=== PATIENT | female | born 2000 | race Caucasian/White ===

== ENCOUNTER 2020-09-25 14:29 | Inpatient (IN) ==
[2020-09-25] MEDS ORDERED: OXYTOCIN 30 UNITS/500 ML BAG IV PRN ×2 (15:04→20:10)
--- NOTE | 2020-09-25 15:10 | History & Physical Report ---
Date of Service September 25, 2020 Assessment & Plan (1) Postmaturity , 40-42 weeks gestation: (2) pyelectasis: (3) History of drug abuse: (4) Normal labor: grossly ruptured and laboring. Admit. expectant management. gbs negative. urine drug screen. hx of heroin and meth use. Fetus reassuring. anticipate . History of Present Illness Chief Complaint: leaking fluid and contractions Primary Care Provider: NO PCP Ptient is a 20yowf with iup at 40 4/7 weeks who presents to labor and delivery with complaints of contractions and a large gush of fluid at 1pm. clear. Notes contractions much more uncomfortable than previous contractions. complicated by the following 1. late presentation to care--presented at 20 weeks, was incarcerated at the time. 2. 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 Is currently on probation , and getting drug tested regularly and has been negative. 3. Hep C prelim positive and RNA is negative. 4. bilateral pyelectasis on US--stable, to be followed after delivery labs--A-/ab-/ri/rprnr/hepb-/hiv-/Hep C prlim positive/ Hep C RNA neg/AFP-/cf/sma-/panorama low risk/failed 1 hr gtt/ passed 2 hr gtt/ gbs neg/ covid neg x 2. Allergies Allergy/AdvReac Type Severity Reaction Status Date / Time Penicillins Allergy unknown, Verified 09/21/20 10:56 ocurred as Home Medications Home Medications Medication Instructions Recorded Confirmed Type prenat.vits,sherry,[id number] 1 tab PO DAILY 05/11/20 09/22/20 History acetaminophen [Tylenol Extra 500 mg PO Q6H PRN 06/02/20 09/22/20 History Strength] ondansetron HCl [Zofran] 4 mg PO BID 06/02/20 09/22/20 History Patient History Medical History (Updated 09/25/20 @ 15:19 by Yandy Valderrama MD, FACOG) 24 weeks gestation of Abdominal pain affecting Abnormal biochemical finding on screening of mother Anxiety Cervicitis Depression Hepatitis C History of drug abuse used methamphetamine on 05/05/2020 used herion in past as well Surgical History S/P wisdom tooth extraction Family History Mother Diabetes Brother Diabetes Grandfather (Paternal) Hypertension Grandmother (Paternal) Hypertension Social History Smoking Status: Current every day smoker Cigarettes Per Day: 1/2 pack; Second Hand Exposure: No; Hx Alcohol Use: No Hx Substance Use: Yes Last Used Substance Other:: April 2020 Preferred Language: Bahraini Communication Ability: Effective Graphite Grinder Required: No Beliefs That Will Affect Care: None marital status: Single marital status details: fob not involved Current Living Situation: Family and Significant Other Current Living Situation Comment: currently [facility] current occupational status: unemployed Feels Safe at Home: Yes Assistive Devices: None Review of Systems All systems reviewed & are unremarkable except as noted in HPI & below Physical Exam Constitutional: WD/WN, vitals as above Gastrointestinal (Abdomen): soft, gravid, nt Psychiatric: A+Ox3, euthymic affect Genitourinary: cx--/-2 toco--q2-3min efm--150s with mod variability, small accels , no decels sse--grossly ruptured, hair visible Code Status & VTE Plan VTE Prophylaxis Plan VTE Prophylaxis will be ordered: No Coding Level of Care Code None Diagnoses Postmaturity , 40-42 weeks gestation O48.0 pyelectasis History of drug abuse F19.11 Normal labor O80; Z37.9
[2020-09-25] MEDS ORDERED: BUTORPHANOL TARTRATE 1 MG/ML VIAL IV ONE (15:15)
[2020-09-25] MEDS: LACTATED RINGER'S 1,000 ML IV PRN ×2 (15:22→19:13)
[2020-09-25 15:28] LABS: Hematocrit (blood only) 39.7 % (37-47); Hemoglobin 13.4 g/dL (12.0-16.0); Mean Corpuscular Hemoglobin 31.9 pg (25-34); Mean Corpuscular Hgb Conc 33.8 g/dL (32-36); Mean Corpuscular Volume 94.5 fL (80-100); Mean Platelet Volume 11.7 fL (7.4-10.4); Platelet Count 187 K/uL (130-400); RDW Coefficient of Variation 13.3 % (11.5-14.5); RDW Standard Deviation 45.8 fL (36.4-46.3); White Blood Count 17.27 K/uL (4.8-10.8)
[2020-09-25 16:13] LABS: Amphetamines+Metham, Urine Neg (Neg); Barbiturates, Urine Neg (Neg); Benzodiazepine, Urine Neg (Neg); Cocaine, Urine Neg (Neg); MDMA (Ecstacy), Urine Neg (Neg); Methadone, Urine Neg (Neg); Opiate, Urine Neg (Neg); Phencyclidine, Urine Neg (Neg)
[2020-09-25] MEDS ORDERED: ePHEDrine sulfate 50 MG/ML AMP ONE (16:14)
[2020-09-25] MEDS ORDERED: SODIUM CHLORIDE 0.9% INJ 10 ML VIAL ONE (16:14)
[2020-09-25] MEDS ORDERED: BUPIVACAINE 0.25% 30 ML VIAL ONE (16:14)
[2020-09-25] MEDS ORDERED: fentaNYL citrate 100 MCG/2 ML VIAL ONE (16:14)
[2020-09-25] MEDS ORDERED: fentaNYL 2MCG/ML ROPIVACAINE 1.25MG/ML 100 ML BAG EPI ONE (16:15)
--- NOTE | 2020-09-25 16:17 | Anesthesiology Consultation ---
Date of Service September 25, 2020 Assessment & Plan Chart Review Chart Review: Acceptable Risk for Surgery and Acceptable Risk for Labor Epidural Consults Requested none ASA ASA2 Proposed Anesthesia Anesthesia Type: Labor Epidural Risk / Benefits Reviewed With: PT / POA / Parent / Guardian, Accepts Plan and Informed Consent Obtained History Height/Weight Height: 5 ft 6 in Allergies Allergy/AdvReac Type Severity Reaction Status Date / Time Penicillins Allergy unknown, Verified 09/21/20 10:56 ocurred as infant Medications Home Medications Medication Instructions Recorded Confirmed Last Taken prenat.vits,sherry,[id number] 1 tab PO DAILY 05/11/20 09/22/20 09/21/20 acetaminophen [Tylenol Extra 500 mg PO Q6H PRN 06/02/20 09/22/20 09/19/20 Strength] ondansetron HCl [Zofran] 4 mg PO BID 06/02/20 09/22/20 06/01/20 20:00 Active Medications Generic Name Dose Route Start Last Admin Trade Name Freq PRN Reason Stop Dose Admin Lactated Ringer's 1,000 mls @ 125 mls/hr 09/25/20 15:04 09/25/20 16:10 Lr IV 09/27/20 15:03 999 mls/hr .Q8H PRN Infusion L&D Protocol Protocol NPO Date Last Intake of Fluids: 09/25/20 Time Last Intake of Fluids: 16:00 Date Last Intake of Solids: 09/25/20 Past Medical History Medical History 24 weeks gestation of Abdominal pain affecting Abnormal biochemical finding on screening of mother Anxiety Cervicitis Depression Hepatitis C History of drug abuse used methamphetamine on 05/05/2020 used herion in past as well Exercise / Class Metabolic Activity II 4-5 Yardwork/Stairs/Walk up hill Past Family History Family History Mother Diabetes Brother Diabetes Grandfather (Paternal) Hypertension Grandmother (Paternal) Hypertension Past Surgical History Surgical History S/P wisdom tooth extraction Past Anesthesia History No Hx of Anesthesia Complications and No Family Hx of Anesthesia Complications History of PONV No Hx of PONV and No Hx of Motion Sickness Social History Smoking Status: Current every day smoker tobacco type: cigarettes Smoking cigarettes per day: 1/2 pack Hx Alcohol Use: No Hx Substance Use: Yes substance use type: methamphetamine Last Used Substance Other:: April 2020 Physical Exam Vital Signs Last Vital Signs Pulse 109 H 09/25/20 15:13 BP 127/78 09/25/20 15:13 ENMT Mouth: no TMJ abnormality Thyromental Distance: > or= 3.5 Finger Breadths Mallampati Class: II Neck normal visual inspection and trachea midline; neck extension not limited Respiratory normal respiratory effort Auscultation: lungs clear to auscultation bilaterally Cardiovascular Rate/Rhythm: regular rate and regular rhythm Heart Sounds: no murmur Musculoskeletal Spine: normal cervical ROM Extremities: full ROM of extremities Neurologic moves all extremities Psychiatric Orientation: alert and oriented x 3 Testing Laboratory Results 09/25/20 15:19
[2020-09-25] MEDS ORDERED: NALOXONE HCL 1 MG in SODIUM CHLORIDE 0.9% 1000ML 1,000 ML IV PRN (17:04)
[2020-09-25] MEDS ORDERED: NALOXONE HCL 0.4 MG/1 ML VIAL/CARP IV PRN (17:04)
[2020-09-25] MEDS ORDERED: diphenhydrAMINE 50 MG/ML VIAL IV PRN (17:04)
[2020-09-25] MEDS ORDERED: PROMETHAZINE HCL 25 MG in SODIUM CHLORIDE 0.9% 50 ML IV PRN (17:04)
[2020-09-25] MEDS ORDERED: ePHEDrine sulfate 50 MG/ML AMP IV PRN (17:04)
[2020-09-25] MEDS ORDERED: ONDANSETRON INJ 2 MG/ML 2 ML VIAL IV PRN (17:04)
--- NOTE | 2020-09-25 17:43 | Labor Progress Brief Note ---
Date of Service September 25, 2020 Subjective comfortable after epidural Assessment & Plan (1) Normal labor: Admission and Anticipated Discharge Date Admission Date: September 25, 2020 continue expectant management. Fetus category one. anticipate Physical Exam Constitutional: WD/WN, vitals as above Psychiatric: A+Ox3, euthymic affect Genitourinary: cx--5/100/-1 toco--q2-4min efm--140s with mod variability, accels present, no decels Results & Data ([facility]) Vital Signs (Past 12 Hours) Vital Signs Temp Pulse Resp BP Pulse Ox 09/25/20 17:40 100 H 111/57 L 09/25/20 17:35 98 H 99 09/25/20 17:30 96 H 116/62 97 09/25/20 17:25 97 H 98 09/25/20 17:21 96 H 119/68 09/25/20 17:20 96 H 97 09/25/20 17:15 94 H 98 09/25/20 17:11 93 H 123/73 09/25/20 17:10 95 H 97 09/25/20 17:05 102 H 97 09/25/20 17:00 100 H 117/67 98 09/25/20 16:55 110 H 97 09/25/20 16:50 100 H 97 09/25/20 16:49 105 H 118/63 09/25/20 16:47 100 H 116/63 09/25/20 16:45 103 H 119/61 98 09/25/20 16:43 103 H 113/58 L 09/25/20 16:41 103 H 112/56 L 09/25/20 16:40 105 H 98 09/25/20 16:37 105 H 110/59 L 09/25/20 16:35 103 H 120/69 98 09/25/20 16:34 108 H 121/68 09/25/20 16:30 106 H 97 09/25/20 16:25 118 H 100 09/25/20 16:20 123 H 99 09/25/20 15:13 109 H 127/78 09/25/20 14:40 37.0 C 102 H 22 97 Coding Level of Care Code None Diagnoses Normal labor O80; Z37.9
--- NOTE | 2020-09-25 19:22 | Labor Progress Brief Note ---
Date of Service September 25, 2020 Subjective comfortable Assessment & Plan (1) Normal labor: Admission and Anticipated Discharge Date Admission Date: September 25, 2020 fetus has recovered and reassuring . Not picking up contractions well. May need IUPC. Will continue to monitor closely. Physical Exam Constitutional: WD/WN, vitals as above Psychiatric: A+Ox3, euthymic affect Genitourinary: cx--5-6/100/-1 toco--difficult tracing efm--decel to 80-90 lasted about 5 min, resolved with postion change, +scalp stim, may be related to a prolonged contractions or tachysystole prior to that fht 150s with min to mod variability, small accels, no decels Results & Data ([facility]) Vital Signs (Past 12 Hours) Vital Signs Temp Pulse Resp BP Pulse Ox 09/25/20 19:15 91 H 99 09/25/20 19:11 92 H 110/63 09/25/20 19:10 91 H 100 09/25/20 19:09 99 H 118/72 89 L 09/25/20 19:05 108 H 100 09/25/20 19:04 107 H 85 L 09/25/20 19:00 100 H 97 09/25/20 18:56 96 H 104/59 L 09/25/20 18:55 96 H 97 09/25/20 18:50 96 H 98 09/25/20 18:45 100 H 99 09/25/20 18:41 101 H 108/55 L 09/25/20 18:40 99 H 98 09/25/20 18:35 100 H 98 09/25/20 18:30 98 H 97 09/25/20 18:26 108 H 112/67 09/25/20 18:25 104 H 97 09/25/20 18:20 100 H 97 09/25/20 18:15 100 H 96 09/25/20 18:10 102 H 107/59 L 97 09/25/20 18:05 98 H 96 09/25/20 18:00 96 H 96 09/25/20 17:55 96 H 109/64 96 09/25/20 17:50 97 H 96 09/25/20 17:45 95 H 97 09/25/20 17:40 103 H 111/57 L 97 09/25/20 17:35 98 H 99 09/25/20 17:30 96 H 116/62 97 09/25/20 17:25 97 H 98 09/25/20 17:21 96 H 119/68 09/25/20 17:20 96 H 97 09/25/20 17:15 94 H 98 09/25/20 17:11 93 H 123/73 09/25/20 17:10 95 H 97 09/25/20 17:05 102 H 97 09/25/20 17:00 100 H 117/67 98 09/25/20 16:55 110 H 97 09/25/20 16:50 100 H 97 09/25/20 16:49 105 H 118/63 09/25/20 16:47 100 H 116/63 09/25/20 16:45 103 H 119/61 98 09/25/20 16:43 103 H 113/58 L 09/25/20 16:41 103 H 112/56 L 09/25/20 16:40 105 H 98 09/25/20 16:37 105 H 110/59 L 09/25/20 16:35 103 H 120/69 98 09/25/20 16:34 108 H 121/68 09/25/20 16:30 106 H 97 09/25/20 16:25 118 H 100 09/25/20 16:20 123 H 99 09/25/20 15:13 109 H 127/78 09/25/20 14:40 37.0 C 102 H 22 97 Coding Level of Care Code None Diagnoses Normal labor O80; Z37.9
--- NOTE | 2020-09-25 20:10 | Labor Progress Brief Note ---
Date of Service September 25, 2020 Subjective comfortable Assessment & Plan (1) Normal labor: Admission and Anticipated Discharge Date Admission Date: September 25, 2020 iupc placed, will add pitocin to augment if indicated. fetus reassuring. Physical Exam Constitutional: WD/WN, vitals as above Gastrointestinal (Abdomen): soft, gravid Psychiatric: A+Ox3, euthymic affect Genitourinary: cx--6/100/-1 toco--difficult tracing, iupc placed efm--150s with mod variability, small accels, no decels Results & Data ([facility]) Vital Signs (Past 12 Hours) Vital Signs Temp Pulse Resp BP Pulse Ox 09/25/20 20:05 94 H 100 09/25/20 20:04 101 H 87 L 09/25/20 20:00 92 H 96 09/25/20 19:55 95 H 107/61 100 09/25/20 19:50 92 H 100 09/25/20 19:46 97 H 90 09/25/20 19:45 98 H 99 09/25/20 19:40 96 H 109/63 94 09/25/20 19:39 108 H 90 09/25/20 19:35 98 H 98 09/25/20 19:32 97 H 91 09/25/20 19:30 91 H 16 99 09/25/20 19:25 91 H 107/61 99 09/25/20 19:20 93 H 99 09/25/20 19:15 37.1 C 91 H 18 99 09/25/20 19:11 92 H 110/63 09/25/20 19:10 91 H 100 09/25/20 19:09 99 H 118/72 89 L 09/25/20 19:05 108 H 100 09/25/20 19:04 107 H 85 L 09/25/20 19:00 100 H 97 09/25/20 18:56 96 H 104/59 L 09/25/20 18:55 96 H 97 09/25/20 18:50 96 H 98 09/25/20 18:45 100 H 99 09/25/20 18:41 101 H 108/55 L 09/25/20 18:40 99 H 98 09/25/20 18:35 100 H 98 09/25/20 18:30 98 H 97 09/25/20 18:26 108 H 112/67 09/25/20 18:25 104 H 97 09/25/20 18:20 100 H 97 09/25/20 18:15 100 H 96 09/25/20 18:10 102 H 107/59 L 97 09/25/20 18:05 98 H 96 09/25/20 18:00 96 H 96 09/25/20 17:55 96 H 109/64 96 09/25/20 17:50 97 H 96 09/25/20 17:45 95 H 97 09/25/20 17:40 103 H 111/57 L 97 09/25/20 17:35 98 H 99 09/25/20 17:30 96 H 116/62 97 09/25/20 17:25 97 H 98 09/25/20 17:21 96 H 119/68 09/25/20 17:20 96 H 97 09/25/20 17:15 94 H 98 09/25/20 17:11 93 H 123/73 09/25/20 17:10 95 H 97 09/25/20 17:05 102 H 97 09/25/20 17:00 100 H 117/67 98 09/25/20 16:55 110 H 97 09/25/20 16:50 100 H 97 09/25/20 16:49 105 H 118/63 09/25/20 16:47 100 H 116/63 09/25/20 16:45 103 H 119/61 98 09/25/20 16:43 103 H 113/58 L 09/25/20 16:41 103 H 112/56 L 09/25/20 16:40 105 H 98 09/25/20 16:37 105 H 110/59 L 09/25/20 16:35 103 H 120/69 98 09/25/20 16:34 108 H 121/68 09/25/20 16:30 106 H 97 09/25/20 16:25 118 H 100 09/25/20 16:20 123 H 99 09/25/20 15:13 109 H 127/78 09/25/20 14:40 37.0 C 102 H 22 97 Coding Level of Care Code None Diagnoses Normal labor O80; Z37.9
[2020-09-25] MEDS ORDERED: ACETAMINOPHEN 325 MG TAB PO PRN (22:51)
[2020-09-26] MEDS: fentaNYL 2MCG/ML ROPIVACAINE 1.25MG/ML 100 ML BAG EPI PRN ×2 (00:09→07:26)
[2020-09-26] MEDS: LACTATED RINGER'S 1,000 ML IV PRN ×2 (00:10→04:24)
--- NOTE | 2020-09-26 03:24 | Labor Progress Brief Note ---
Date of Service September 26, 2020 Subjective comfortable, does note some back discomfort Assessment & Plan (1) Normal labor: Admission and Anticipated Discharge Date Admission Date: September 25, 2020 concerned about this labor. Has been 6 or so cm since 8pm. However, ctx may not be adequate. palpation is not consistent with what we are picking up on the IUPC. Will continue to carefully run pitocin. Fetus category two but overall reassuring. Has some normal bloody show. Physical Exam Psychiatric: A+Ox3, euthymic affect Genitourinary: cx--6-7/100/-1, swelling of ant cervix, lower than previously toco--difficult tracing, dysfunctional, palpates firm, q2-3min efm--150s with mod variability, small accels, occasional decel with position change that is resolved with different positioning. Results & Data ([facility]) Vital Signs (Past 12 Hours) Vital Signs Temp Pulse Resp BP Pulse Ox 09/26/20 03:15 111 H 97 09/26/20 03:10 102 H 115/58 L 97 09/26/20 03:06 37.0 C 20 09/26/20 03:05 105 H 99 09/26/20 03:00 103 H 97 09/26/20 02:55 105 H 113/56 L 98 09/26/20 02:50 119 H 97 09/26/20 02:45 106 H 97 09/26/20 02:41 105 H 113/54 L 09/26/20 02:40 105 H 98 09/26/20 02:39 112 H 89 L 09/26/20 02:35 105 H 97 09/26/20 02:30 104 H 16 97 09/26/20 02:25 104 H 97/56 L 97 09/26/20 02:20 95 H 98 09/26/20 02:18 37.3 C 09/26/20 02:17 114 H 89 L 09/26/20 02:15 103 H 98 09/26/20 02:11 103 H 96/54 L 09/26/20 02:10 102 H 98 09/26/20 02:05 110 H 97 09/26/20 02:00 99 H 18 97 09/26/20 01:56 96 H 117/70 09/26/20 01:55 105 H 97 09/26/20 01:50 114 H 97 09/26/20 01:45 101 H 97 09/26/20 01:41 100 H 113/58 L 09/26/20 01:40 98 H 96 09/26/20 01:35 102 H 97 09/26/20 01:30 103 H 18 98 09/26/20 01:27 104 H 112/64 09/26/20 01:25 105 H 97 09/26/20 01:20 105 H 97 09/26/20 01:15 111 H 97 09/26/20 01:12 102 H 108/59 L 09/26/20 01:10 111 H 98 09/26/20 01:05 97 H 98 09/26/20 01:00 98 H 16 98 09/26/20 00:56 103 H 115/62 09/26/20 00:55 104 H 97 09/26/20 00:53 103 H 87 L 09/26/20 00:50 103 H 97 09/26/20 00:45 104 H 97 09/26/20 00:40 105 H 103/58 L 98 09/26/20 00:35 106 H 97 09/26/20 00:30 37.5 C 102 H 18 97 09/26/20 00:26 103 H 108/59 L 09/26/20 00:25 104 H 98 09/26/20 00:20 104 H 98 09/26/20 00:15 117 H 98 09/26/20 00:10 105 H 117/69 97 09/26/20 00:05 115 H 98 09/26/20 00:00 108 H 98 09/25/20 23:55 108 H 109/57 L 97 09/25/20 23:50 106 H 96 09/25/20 23:45 106 H 97 09/25/20 23:40 106 H 108/59 L 97 09/25/20 23:35 103 H 97 09/25/20 23:30 105 H 16 97 09/25/20 23:26 104 H 103/58 L 09/25/20 23:25 104 H 98 09/25/20 23:20 100 H 97 09/25/20 23:15 103 H 98 09/25/20 23:10 108 H 106/60 98 09/25/20 23:05 120 H 100 09/25/20 23:00 107 H 16 98 09/25/20 22:55 111 H 110/60 99 09/25/20 22:50 37.4 C 105 H 99 09/25/20 22:46 112 H 81 L 09/25/20 22:45 108 H 18 100 09/25/20 22:41 111 H 117/66 09/25/20 22:40 106 H 100 09/25/20 22:35 105 H 100 09/25/20 22:30 105 H 100 09/25/20 22:26 105 H 117/63 09/25/20 22:25 101 H 100 09/25/20 22:20 107 H 18 97 09/25/20 22:19 117 H 85 L 09/25/20 22:15 105 H 98 09/25/20 22:11 100 H 122/75 09/25/20 22:10 100 H 100 09/25/20 22:05 104 H 100 09/25/20 22:00 102 H 18 100 09/25/20 21:55 100 H 125/67 100 09/25/20 21:54 103 H 85 L 09/25/20 21:50 100 H 100 09/25/20 21:45 103 H 99 09/25/20 21:42 102 H 121/63 88 L 09/25/20 21:40 97 H 100 09/25/20 21:35 104 H 100 09/25/20 21:30 102 H 16 100 09/25/20 21:26 99 H 121/65 09/25/20 21:25 100 H 100 09/25/20 21:20 101 H 100 09/25/20 21:15 99 H 100 09/25/20 21:11 96 H 117/61 09/25/20 21:10 93 H 100 09/25/20 21:07 98 H 90 09/25/20 21:05 100 H 100 09/25/20 21:01 96 H 89 L 09/25/20 21:00 95 H 18 99 09/25/20 20:56 98 H 116/64 09/25/20 20:55 102 H 98 09/25/20 20:50 37.1 C 99 H 100 09/25/20 20:45 100 H 100 09/25/20 20:40 101 H 116/69 98 09/25/20 20:35 101 H 95 09/25/20 20:30 97 H 18 100 11/15/20 20:25 99 H 119/70 98 11/15/20 20:20 98 H 100 11/15/20 20:15 93 H 100 11/15/20 20:13 104 H 88 L 11/15/20 20:11 90 118/67 11/15/20 20:10 93 H 100 11/15/20 20:05 94 H 100 11/15/20 20:04 101 H 87 L 11/15/20 20:00 92 H 18 96 /15/20 19:55 95 H 107/61 100 11/15/20 19:50 92 H 100 /15/20 19:46 97 H 90 11/15/20 19:45 98 H 99 /15/20 19:40 96 H 109/63 94 /15/20 19:39 108 H 90 /15/20 19:35 98 H 98 /15/20 19:32 97 H 91 /15/20 19:30 91 H 16 99 15/20 19:25 91 H 107/61 99 15/20 19:20 93 H 99 15/20 19:15 37.1 C 91 H 18 99 15/20 19:11 92 H 110/63 /15/20 19:10 91 H 100 /15/20 19:09 99 H 118/72 89 L 15/20 19:05 108 H 100 15/20 19:04 107 H 85 L 15/20 19:00 100 H 97 /15/20 18:56 96 H 104/59 L 15/20 18:55 96 H 97 15/20 18:50 96 H 98 11/15/20 18:45 100 H 99 /15/20 18:41 101 H 108/55 L 11/15/20 18:40 99 H 98 /15/20 18:35 100 H 98 11/15/20 18:30 98 H 97 11/15/20 18:26 108 H 112/67 11/15/20 18:25 104 H 97 /15/20 18:20 100 H 97 11/15/20 18:15 100 H 96 /15/20 18:10 102 H 107/59 L 97 15/20 18:05 98 H 96 /15/20 18:00 96 H 96 09/25/20 17:55 96 H 109/64 96 09/25/20 17:50 97 H 96 09/25/20 17:45 95 H 97 09/25/20 17:40 103 H 111/57 L 97 09/25/20 17:35 98 H 99 09/25/20 17:30 96 H 116/62 97 09/25/20 17:25 97 H 98 09/25/20 17:21 96 H 119/68 09/25/20 17:20 96 H 97 09/25/20 17:15 94 H 98 09/25/20 17:11 93 H 123/73 09/25/20 17:10 95 H 97 09/25/20 17:05 102 H 97 09/25/20 17:00 100 H 117/67 98 09/25/20 16:55 110 H 97 09/25/20 16:50 100 H 97 09/25/20 16:49 105 H 118/63 09/25/20 16:47 100 H 116/63 09/25/20 16:45 103 H 119/61 98 09/25/20 16:43 103 H 113/58 L 09/25/20 16:41 103 H 112/56 L 09/25/20 16:40 105 H 98 09/25/20 16:37 105 H 110/59 L 09/25/20 16:35 103 H 120/69 98 09/25/20 16:34 108 H 121/68 09/25/20 16:30 106 H 97 09/25/20 16:25 118 H 100 09/25/20 16:20 123 H 99 Coding Level of Care Code None Diagnoses Normal labor O80; Z37.9
--- NOTE | 2020-09-26 04:57 | Labor Progress Brief Note ---
Date of Service September 26, 2020 Subjective still resting Assessment & Plan (1) Normal labor: Admission and Anticipated Discharge Date Admission Date: September 25, 2020 Has definitely made cervical change at this point and the swelling is resolved. Fetus category one-two mostly reassuring. Contractions petered out quickly with d/c of pitocin, so suspect we were getting closer to more adequate contractions. given the change , will continue current management and closely monitor. Physical Exam Constitutional: WD/WN, vitals as above Psychiatric: A+Ox3, euthymic affect Genitourinary: cx--7-8/100/--1-0, less cervical swelling toco--q2-4 prior to turning pitocin off. efm--140s with min to mod variability, +scalp stim, another short decel started with position change, and resolved with changing position and pit turned off. Results & Data ([facility]) Vital Signs (Past 12 Hours) Vital Signs Temp Pulse Resp BP Pulse Ox 09/26/20 04:50 107 H 99 09/26/20 04:45 97 H 99 09/26/20 04:41 96 H 109/65 09/26/20 04:40 98 H 98 09/26/20 04:35 101 H 98 09/26/20 04:30 100 H 98 09/26/20 04:26 111 H 128/75 09/26/20 04:25 112 H 96 09/26/20 04:20 99 H 98 09/26/20 04:16 36.7 C 107 H 127/73 09/26/20 04:15 105 H 98 09/26/20 04:10 125 H 99 09/26/20 04:06 118 H 89 L 09/26/20 04:05 106 H 99 09/26/20 04:00 111 H 16 98 09/26/20 03:55 102 H 113/58 L 98 09/26/20 03:50 105 H 98 09/26/20 03:45 102 H 98 09/26/20 03:42 101 H 106/56 L 09/26/20 03:40 109 H 97 09/26/20 03:35 101 H 98 09/26/20 03:30 113 H 98 09/26/20 03:26 103 H 115/56 L 09/26/20 03:25 104 H 98 09/26/20 03:20 110 H 99 09/26/20 03:15 111 H 97 09/26/20 03:10 102 H 115/58 L 97 09/26/20 03:06 37.0 C 20 09/26/20 03:05 105 H 99 09/26/20 03:00 103 H 97 09/26/20 02:55 105 H 113/56 L 98 09/26/20 02:50 119 H 97 09/26/20 02:45 106 H 97 09/26/20 02:41 105 H 113/54 L 09/26/20 02:40 105 H 98 09/26/20 02:39 112 H 89 L 09/26/20 02:35 105 H 97 09/26/20 02:30 104 H 16 97 09/26/20 02:25 104 H 97/56 L 97 09/26/20 02:20 95 H 98 09/26/20 02:18 37.3 C 09/26/20 02:17 114 H 89 L 09/26/20 02:15 103 H 98 09/26/20 02:11 103 H 96/54 L 09/26/20 02:10 102 H 98 09/26/20 02:05 110 H 97 09/26/20 02:00 99 H 18 97 09/26/20 01:56 96 H 117/70 09/26/20 01:55 105 H 97 09/26/20 01:50 114 H 97 09/26/20 01:45 101 H 97 09/26/20 01:41 100 H 113/58 L 09/26/20 01:40 98 H 96 09/26/20 01:35 102 H 97 09/26/20 01:30 103 H 18 98 09/26/20 01:27 104 H 112/64 09/26/20 01:25 105 H 97 09/26/20 01:20 105 H 97 09/26/20 01:15 111 H 97 09/26/20 01:12 102 H 108/59 L 09/26/20 01:10 111 H 98 09/26/20 01:05 97 H 98 09/26/20 01:00 98 H 16 98 09/26/20 00:56 103 H 115/62 09/26/20 00:55 104 H 97 09/26/20 00:53 103 H 87 L 09/26/20 00:50 103 H 97 09/26/20 00:45 104 H 97 09/26/20 00:40 105 H 103/58 L 98 09/26/20 00:35 106 H 97 09/26/20 00:30 37.5 C 102 H 18 97 09/26/20 00:26 103 H 108/59 L 09/26/20 00:25 104 H 98 09/26/20 00:20 104 H 98 09/26/20 00:15 117 H 98 09/26/20 00:10 105 H 117/69 97 09/26/20 00:05 115 H 98 09/26/20 00:00 108 H 98 09/25/20 23:55 108 H 109/57 L 97 09/25/20 23:50 106 H 96 09/25/20 23:45 106 H 97 09/25/20 23:40 106 H 108/59 L 97 09/25/20 23:35 103 H 97 09/25/20 23:30 105 H 16 97 09/25/20 23:26 104 H 103/58 L 09/25/20 23:25 104 H 98 09/25/20 23:20 100 H 97 09/25/20 23:15 103 H 98 09/25/20 23:10 108 H 106/60 98 09/25/20 23:05 120 H 100 09/25/20 23:00 107 H 16 98 09/25/20 22:55 111 H 110/60 99 09/25/20 22:50 37.4 C 105 H 99 09/25/20 22:46 112 H 81 L 09/25/20 22:45 108 H 18 100 09/25/20 22:41 111 H 117/66 09/25/20 22:40 106 H 100 09/25/20 22:35 105 H 100 09/25/20 22:30 105 H 100 09/25/20 22:26 105 H 117/63 09/25/20 22:25 101 H 100 09/25/20 22:20 107 H 18 97 09/25/20 22:19 117 H 85 L 09/25/20 22:15 105 H 98 09/25/20 22:11 100 H 122/75 09/25/20 22:10 100 H 100 09/25/20 22:05 104 H 100 09/25/20 22:00 102 H 18 100 11/15/20 21:55 100 H 125/67 100 15/20 21:54 103 H 85 L 09/25/20 21:50 100 H 100 15/20 21:45 103 H 99 15/20 21:42 102 H 121/63 88 L 15/20 21:40 97 H 100 15/20 21:35 104 H 100 15/20 21:30 102 H 16 100 1520 21:26 99 H 121/65 15/20 21:25 100 H 100 15/20 21:20 101 H 100 15/20 21:15 99 H 100 15/20 21:11 96 H 117/61 09/25/20 21:10 93 H 100 09/25/20 21:07 98 H 90 20 21:05 100 H 100 20 21:01 96 H 89 L 20 21:00 95 H 18 99 20 20:56 98 H 116/64 20 20:55 102 H 98 15/20 20:50 37.1 C 99 H 100 15/20 20:45 100 H 100 15/20 20:40 101 H 116/69 98 15/20 20:35 101 H 95 15/20 20:30 97 H 18 100 15/20 20:25 99 H 119/70 98 15/20 20:20 98 H 100 15/20 20:15 93 H 100 15/20 20:13 104 H 88 L 20 20:11 90 118/67 15/20 20:10 93 H 100 15/20 20:05 94 H 100 15/20 20:04 101 H 87 L 15/20 20:00 92 H 18 96 15/20 19:55 95 H 107/61 100 15/20 19:50 92 H 100 15/20 19:46 97 H 90 15/20 19:45 98 H 99 15/20 19:40 96 H 109/63 94 15/20 19:39 108 H 90 15/20 19:35 98 H 98 15/20 19:32 97 H 91 09/25/20 19:30 91 H 16 99 20 19:25 91 H 107/61 99 20 19:20 93 H 99 09/25/20 19:15 37.1 C 91 H 18 99 09/25/20 19:11 92 H 110/63 09/25/20 19:10 91 H 100 09/25/20 19:09 99 H 118/72 89 L 09/25/20 19:05 108 H 100 09/25/20 19:04 107 H 85 L 09/25/20 19:00 100 H 97 09/25/20 18:56 96 H 104/59 L 09/25/20 18:55 96 H 97 09/25/20 18:50 96 H 98 09/25/20 18:45 100 H 99 09/25/20 18:41 101 H 108/55 L 09/25/20 18:40 99 H 98 09/25/20 18:35 100 H 98 09/25/20 18:30 98 H 97 09/25/20 18:26 108 H 112/67 09/25/20 18:25 104 H 97 09/25/20 18:20 100 H 97 09/25/20 18:15 100 H 96 09/25/20 18:10 102 H 107/59 L 97 09/25/20 18:05 98 H 96 09/25/20 18:00 96 H 96 09/25/20 17:55 96 H 109/64 96 09/25/20 17:50 97 H 96 20 17:45 95 H 97 09/25/20 17:40 103 H 111/57 L 97 09/25/20 17:35 98 H 99 20 17:30 96 H 116/62 97 20 17:25 97 H 98 1520 17:21 96 H 119/68 20 17:20 96 H 97 20 17:15 94 H 98 20 17:11 93 H 123/73 20 17:10 95 H 97 20 17:05 102 H 97 20 17:00 100 H 117/67 98 09/25/20 16:55 110 H 97 Coding Level of Care Code None Diagnoses Normal labor O80; Z37.9
[2020-09-26] MEDS ORDERED: CITRIC ACID/SODIUM CITRATE 15 ML UDC PO SCH (06:00)
[2020-09-26] MEDS ORDERED: ceFAZolin 2000MG 2,000 MG/15 ML SYR IV SCH (06:00)
--- NOTE | 2020-09-26 07:31 | Labor Progress Brief Note ---
Date of Service September 26, 2020 Subjective comfortable and tired Assessment & Plan (1) Dysfunctional labor: Admission and Anticipated Discharge Date Admission Date: September 25, 2020 fetus reassuring at this point. Has not made change since 5am, but pitocin not back up to previous levels. Temp 37.7 and will need to watch closely. Patient signed out to Dr. Darby and Brielle today. Discussed my concerns with them about this patient and her dysfunctional labor. If temp persists, may need antibiotics. Concerned about FTP. Physical Exam Constitutional: WD/WN, vitals as above Psychiatric: A+Ox3, euthymic affect Genitourinary: cx--7/100/0 toco--q2-4min, still dysfunctional with coupling and tripling, not adequate, pit at 7 efm--150s with mod variability, small accels, no decels in last two hours Results & Data ([facility]) Vital Signs (Past 12 Hours) Vital Signs Temp Pulse Resp BP Pulse Ox 09/26/20 07:20 109 H 97 09/26/20 07:15 104 H 96 09/26/20 07:10 107 H 100/55 L 96 09/26/20 07:05 37.7 C H 104 H 20 107/51 L 96 09/26/20 07:00 102 H 16 96 09/26/20 06:56 102 H 104/57 L 09/26/20 06:55 108 H 97 09/26/20 06:50 105 H 94 09/26/20 06:45 107 H 96 09/26/20 06:40 102 H 103/57 L 96 09/26/20 06:35 106 H 96 09/26/20 06:30 101 H 16 96 09/26/20 06:27 103 H 103/52 L 09/26/20 06:25 102 H 96 09/26/20 06:21 114 H 87 L 09/26/20 06:20 37.5 C 111 H 96 09/26/20 06:15 100 H 95 09/26/20 06:13 105 H 116/65 09/26/20 06:10 104 H 97 09/26/20 06:05 101 H 96 09/26/20 06:00 104 H 16 97 09/26/20 05:57 103 H 114/65 09/26/20 05:55 103 H 96 09/26/20 05:50 101 H 96 09/26/20 05:45 98 H 97 09/26/20 05:40 99 H 115/69 98 09/26/20 05:38 107 H 90 09/26/20 05:35 101 H 99 09/26/20 05:30 97 H 16 97 09/26/20 05:29 105 H 86 L 09/26/20 05:26 99 H 111/73 09/26/20 05:25 103 H 95 09/26/20 05:20 97 H 98 09/26/20 05:15 97 H 99 09/26/20 05:11 98 H 109/59 L 09/26/20 05:10 103 H 98 09/26/20 05:05 96 H 98 09/26/20 05:00 98 H 16 98 09/26/20 04:55 98 H 112/65 99 09/26/20 04:50 107 H 99 09/26/20 04:45 97 H 99 09/26/20 04:41 96 H 109/65 09/26/20 04:40 98 H 98 09/26/20 04:35 101 H 98 09/26/20 04:30 100 H 16 98 09/26/20 04:26 111 H 128/75 09/26/20 04:25 112 H 96 09/26/20 04:20 99 H 98 09/26/20 04:16 36.7 C 107 H 127/73 09/26/20 04:15 105 H 98 09/26/20 04:10 125 H 99 09/26/20 04:06 118 H 89 L 09/26/20 04:05 106 H 99 09/26/20 04:00 111 H 16 98 09/26/20 03:55 102 H 113/58 L 98 09/26/20 03:50 105 H 98 09/26/20 03:45 102 H 98 09/26/20 03:42 101 H 106/56 L 09/26/20 03:40 109 H 97 09/26/20 03:35 101 H 98 09/26/20 03:30 113 H 98 09/26/20 03:26 103 H 115/56 L 09/26/20 03:25 104 H 98 09/26/20 03:20 110 H 99 09/26/20 03:15 111 H 97 09/26/20 03:10 102 H 115/58 L 97 09/26/20 03:06 37.0 C 20 09/26/20 03:05 105 H 99 09/26/20 03:00 103 H 97 09/26/20 02:55 105 H 113/56 L 98 09/26/20 02:50 119 H 97 09/26/20 02:45 106 H 97 09/26/20 02:41 105 H 113/54 L 09/26/20 02:40 105 H 98 09/26/20 02:39 112 H 89 L 09/26/20 02:35 105 H 97 09/26/20 02:30 104 H 16 97 09/26/20 02:25 104 H 97/56 L 97 09/26/20 02:20 95 H 98 09/26/20 02:18 37.3 C 09/26/20 02:17 114 H 89 L 09/26/20 02:15 103 H 98 09/26/20 02:11 103 H 96/54 L 09/26/20 02:10 102 H 98 09/26/20 02:05 110 H 97 09/26/20 02:00 99 H 18 97 09/26/20 01:56 96 H 117/70 09/26/20 01:55 105 H 97 09/26/20 01:50 114 H 97 09/26/20 01:45 101 H 97 09/26/20 01:41 100 H 113/58 L 09/26/20 01:40 98 H 96 09/26/20 01:35 102 H 97 09/26/20 01:30 103 H 18 98 09/26/20 01:27 104 H 112/64 09/26/20 01:25 105 H 97 09/26/20 01:20 105 H 97 09/26/20 01:15 111 H 97 09/26/20 01:12 102 H 108/59 L 09/26/20 01:10 111 H 98 09/26/20 01:05 97 H 98 09/26/20 01:00 98 H 16 98 09/26/20 00:56 103 H 115/62 09/26/20 00:55 104 H 97 09/26/20 00:53 103 H 87 L 09/26/20 00:50 103 H 97 09/26/20 00:45 104 H 97 09/26/20 00:40 105 H 103/58 L 98 09/26/20 00:35 106 H 97 09/26/20 00:30 37.5 C 102 H 18 97 09/26/20 00:26 103 H 108/59 L 09/26/20 00:25 104 H 98 09/26/20 00:20 104 H 98 09/26/20 00:15 117 H 98 09/26/20 00:10 105 H 117/69 97 09/26/20 00:05 115 H 98 09/26/20 00:00 108 H 98 09/25/20 23:55 108 H 109/57 L 97 09/25/20 23:50 106 H 96 09/25/20 23:45 106 H 97 09/25/20 23:40 106 H 108/59 L 97 09/25/20 23:35 103 H 97 09/25/20 23:30 105 H 16 97 09/25/20 23:26 104 H 103/58 L 09/25/20 23:25 104 H 98 09/25/20 23:20 100 H 97 09/25/20 23:15 103 H 98 09/25/20 23:10 108 H 106/60 98 09/25/20 23:05 120 H 100 09/25/20 23:00 107 H 16 98 09/25/20 22:55 111 H 110/60 99 09/25/20 22:50 37.4 C 105 H 99 09/25/20 22:46 112 H 81 L 09/25/20 22:45 108 H 18 100 09/25/20 22:41 111 H 117/66 09/25/20 22:40 106 H 100 09/25/20 22:35 105 H 100 09/25/20 22:30 105 H 100 09/25/20 22:26 105 H 117/63 09/25/20 22:25 101 H 100 09/25/20 22:20 107 H 18 97 09/25/20 22:19 117 H 85 L 09/25/20 22:15 105 H 98 09/25/20 22:11 100 H 122/75 09/25/20 22:10 100 H 100 09/25/20 22:05 104 H 100 09/25/20 22:00 102 H 18 100 09/25/20 21:55 100 H 125/67 100 11/15/20 21:54 103 H 85 L 20 21:50 100 H 100 20 21:45 103 H 99 20 21:42 102 H 121/63 88 L 20 21:40 97 H 100 20 21:35 104 H 100 20 21:30 102 H 16 100 20 21:26 99 H 121/65 20 21:25 100 H 100 20 21:20 101 H 100 15/20 21:15 99 H 100 20 21:11 96 H 117/61 20 21:10 93 H 100 20 21:07 98 H 90 20 21:05 100 H 100 20 21:01 96 H 89 L 09/25/20 21:00 95 H 18 99 1520 20:56 98 H 116/64 20 20:55 102 H 98 20 20:50 37.1 C 99 H 100 1520 20:45 100 H 100 20 20:40 101 H 116/69 98 15/20 20:35 101 H 95 1520 20:30 97 H 18 100 20 20:25 99 H 119/70 98 15/20 20:20 98 H 100 15/20 20:15 93 H 100 15/20 20:13 104 H 88 L 20 20:11 90 118/67 20 20:10 93 H 100 1520 20:05 94 H 100 15/20 20:04 101 H 87 L 20 20:00 92 H 18 96 15/20 19:55 95 H 107/61 100 15/20 19:50 92 H 100 15/20 19:46 97 H 90 15/20 19:45 98 H 99 15/20 19:40 96 H 109/63 94 15/20 19:39 108 H 90 15/20 19:35 98 H 98 15/20 19:32 97 H 91 15/20 19:30 91 H 16 99 Coding Level of Care Code None Diagnoses Dysfunctional labor O62.9
--- NOTE | 2020-09-26 09:22 | Labor Progress Brief Note ---
Date of Service September 26, 2020 Subjective Patient comfortable, sleeping. FHT Cat 1 [place] irreg Cervix recheck, unchanged from prior exam 7/100/0. I discussed with patient the failure of cervix to dilate, and inability to obtain adequate contractions. She is agreeable to proceed to section. Discussed informed consent, reviewed RBA. Questions answered. She would like to proceed to OR. Ancef 2g, bicitra ordered. Assessment & Plan Admission and Anticipated Discharge Date Admission Date: September 25, 2020 Results & Data ([facility]) Vital Signs (Past 12 Hours) Vital Signs Temp Pulse Resp BP Pulse Ox 09/26/20 09:20 114 H 97 09/26/20 09:15 110 H 94 09/26/20 09:11 106 H 117/66 09/26/20 09:10 106 H 93 09/26/20 09:08 99 H 91 09/26/20 09:05 102 H 94 09/26/20 09:00 96 H 94 09/26/20 08:56 97 H 102/59 L 09/26/20 08:55 100 H 95 09/26/20 08:50 96 H 93 09/26/20 08:45 95 H 93 09/26/20 08:41 94 H 101/55 L 09/26/20 08:40 99 H 94 09/26/20 08:35 96 H 94 09/26/20 08:32 100 H 91 09/26/20 08:30 101 H 92 09/26/20 08:25 101 H 116/67 93 09/26/20 08:20 108 H 96 09/26/20 08:18 100 H 91 09/26/20 08:15 100 H 93 09/26/20 08:10 102 H 117/67 97 09/26/20 08:05 105 H 97 09/26/20 08:00 102 H 96 09/26/20 07:55 101 H 113/68 97 09/26/20 07:50 99 H 97 09/26/20 07:45 102 H 97 09/26/20 07:40 100 H 114/73 97 09/26/20 07:35 96 H 98 09/26/20 07:30 103 H 97 09/26/20 07:29 125 H 88 L 09/26/20 07:26 110 H 104/66 09/26/20 07:25 108 H 98 09/26/20 07:20 109 H 97 09/26/20 07:15 104 H 96 09/26/20 07:10 107 H 100/55 L 96 09/26/20 07:05 37.7 C H 104 H 20 107/51 L 96 09/26/20 07:00 102 H 16 96 09/26/20 06:56 102 H 104/57 L 09/26/20 06:55 108 H 97 09/26/20 06:50 105 H 94 09/26/20 06:45 107 H 96 09/26/20 06:40 102 H 103/57 L 96 09/26/20 06:35 106 H 96 09/26/20 06:30 101 H 16 96 09/26/20 06:27 103 H 103/52 L 09/26/20 06:25 102 H 96 09/26/20 06:21 114 H 87 L 09/26/20 06:20 37.5 C 111 H 96 09/26/20 06:15 100 H 95 09/26/20 06:13 105 H 116/65 09/26/20 06:10 104 H 97 09/26/20 06:05 101 H 96 09/26/20 06:00 104 H 16 97 09/26/20 05:57 103 H 114/65 09/26/20 05:55 103 H 96 09/26/20 05:50 101 H 96 09/26/20 05:45 98 H 97 09/26/20 05:40 99 H 115/69 98 09/26/20 05:38 107 H 90 09/26/20 05:35 101 H 99 09/26/20 05:30 97 H 16 97 09/26/20 05:29 105 H 86 L 09/26/20 05:26 99 H 111/73 09/26/20 05:25 103 H 95 09/26/20 05:20 97 H 98 09/26/20 05:15 97 H 99 09/26/20 05:11 98 H 109/59 L 09/26/20 05:10 103 H 98 09/26/20 05:05 96 H 98 09/26/20 05:00 98 H 16 98 09/26/20 04:55 98 H 112/65 99 09/26/20 04:50 107 H 99 09/26/20 04:45 97 H 99 09/26/20 04:41 96 H 109/65 09/26/20 04:40 98 H 98 09/26/20 04:35 101 H 98 09/26/20 04:30 100 H 16 98 09/26/20 04:26 111 H 128/75 09/26/20 04:25 112 H 96 09/26/20 04:20 99 H 98 09/26/20 04:16 36.7 C 107 H 127/73 09/26/20 04:15 105 H 98 09/26/20 04:10 125 H 99 09/26/20 04:06 118 H 89 L 09/26/20 04:05 106 H 99 09/26/20 04:00 111 H 16 98 09/26/20 03:55 102 H 113/58 L 98 09/26/20 03:50 105 H 98 09/26/20 03:45 102 H 98 09/26/20 03:42 101 H 106/56 L 09/26/20 03:40 109 H 97 09/26/20 03:35 101 H 98 09/26/20 03:30 113 H 98 09/26/20 03:26 103 H 115/56 L 09/26/20 03:25 104 H 98 09/26/20 03:20 110 H 99 09/26/20 03:15 111 H 97 09/26/20 03:10 102 H 115/58 L 97 09/26/20 03:06 37.0 C 20 09/26/20 03:05 105 H 99 09/26/20 03:00 103 H 97 09/26/20 02:55 105 H 113/56 L 98 09/26/20 02:50 119 H 97 09/26/20 02:45 106 H 97 09/26/20 02:41 105 H 113/54 L 09/26/20 02:40 105 H 98 09/26/20 02:39 112 H 89 L 09/26/20 02:35 105 H 97 09/26/20 02:30 104 H 16 97 09/26/20 02:25 104 H 97/56 L 97 09/26/20 02:20 95 H 98 09/26/20 02:18 37.3 C 09/26/20 02:17 114 H 89 L 09/26/20 02:15 103 H 98 09/26/20 02:11 103 H 96/54 L 09/26/20 02:10 102 H 98 09/26/20 02:05 110 H 97 09/26/20 02:00 99 H 18 97 09/26/20 01:56 96 H 117/70 09/26/20 01:55 105 H 97 09/26/20 01:50 114 H 97 09/26/20 01:45 101 H 97 09/26/20 01:41 100 H 113/58 L 09/26/20 01:40 98 H 96 09/26/20 01:35 102 H 97 09/26/20 01:30 103 H 18 98 09/26/20 01:27 104 H 112/64 09/26/20 01:25 105 H 97 09/26/20 01:20 105 H 97 09/26/20 01:15 111 H 97 09/26/20 01:12 102 H 108/59 L 09/26/20 01:10 111 H 98 09/26/20 01:05 97 H 98 09/26/20 01:00 98 H 16 98 09/26/20 00:56 103 H 115/62 09/26/20 00:55 104 H 97 09/26/20 00:53 103 H 87 L 09/26/20 00:50 103 H 97 09/26/20 00:45 104 H 97 09/26/20 00:40 105 H 103/58 L 98 09/26/20 00:35 106 H 97 09/26/20 00:30 37.5 C 102 H 18 97 09/26/20 00:26 103 H 108/59 L 09/26/20 00:25 104 H 98 09/26/20 00:20 104 H 98 09/26/20 00:15 117 H 98 09/26/20 00:10 105 H 117/69 97 09/26/20 00:05 115 H 98 09/26/20 00:00 108 H 98 09/25/20 23:55 108 H 109/57 L 97 09/25/20 23:50 106 H 96 09/25/20 23:45 106 H 97 09/25/20 23:40 106 H 108/59 L 97 09/25/20 23:35 103 H 97 09/25/20 23:30 105 H 16 97 09/25/20 23:26 104 H 103/58 L 09/25/20 23:25 104 H 98 09/25/20 23:20 100 H 97 09/25/20 23:15 103 H 98 09/25/20 23:10 108 H 106/60 98 09/25/20 23:05 120 H 100 09/25/20 23:00 107 H 16 98 09/25/20 22:55 111 H 110/60 99 09/25/20 22:50 37.4 C 105 H 99 09/25/20 22:46 112 H 81 L 09/25/20 22:45 108 H 18 100 09/25/20 22:41 111 H 117/66 09/25/20 22:40 106 H 100 09/25/20 22:35 105 H 100 09/25/20 22:30 105 H 100 09/25/20 22:26 105 H 117/63 09/25/20 22:25 101 H 100 09/25/20 22:20 107 H 18 97 09/25/20 22:19 117 H 85 L 09/25/20 22:15 105 H 98 09/25/20 22:11 100 H 122/75 09/25/20 22:10 100 H 100 09/25/20 22:05 104 H 100 09/25/20 22:00 102 H 18 100 09/25/20 21:55 100 H 125/67 100 09/25/20 21:54 103 H 85 L 09/25/20 21:50 100 H 100 09/25/20 21:45 103 H 99 09/25/20 21:42 102 H 121/63 88 L 09/25/20 21:40 97 H 100 09/25/20 21:35 104 H 100 09/25/20 21:30 102 H 16 100 09/25/20 21:26 99 H 121/65 09/25/20 21:25 100 H 100 Coding Level of Care Code None
[2020-09-26] MEDS ORDERED: MoRPHine SULFATE PF 1 MG/ML 10 ML AMP/VIAL ONE (09:23)
[2020-09-26] MEDS ORDERED: LIDOCAINE/EPINEPHRINE 2% 1:200,000 20 ML SDV ONE (09:23)
--- NOTE | 2020-09-26 09:27 | History & Physical Bridge Note ---
Date of Service September 26, 2020 History & Physical Bridge Note I have examined the patient, reviewed the History & Physical and in the interval since the performance of the History & Physical I have noted the following changes of clinical significance: no changes noted
[2020-09-26] MEDS ORDERED: PROMETHAZINE HCL 12.5 MG in SODIUM CHLORIDE 0.9% 50 ML IV PRN (10:18)
[2020-09-26] MEDS ORDERED: ONDANSETRON INJ 2 MG/ML 2 ML VIAL IV PRN (10:18)
[2020-09-26] MEDS ORDERED: diphenhydrAMINE 50 MG/ML VIAL IV PRN (10:18)
[2020-09-26] MEDS ORDERED: LACTATED RINGER'S 500 ML IV PRN (10:18)
[2020-09-26] MEDS ORDERED: MoRPHine SULFATE PF 1 MG/ML 10 ML AMP/VIAL EPI ONE (10:18)
[2020-09-26] MEDS ORDERED: NALOXONE HCL 0.08 MG in SYRINGE 1.8 ML IV PRN (10:18)
[2020-09-26] MEDS ORDERED: NALOXONE HCL 1 MG in SODIUM CHLORIDE 0.9% 1000ML 1,000 ML IV PRN (10:18)
[2020-09-26] MEDS ORDERED: KETOROLAC 30 MG/ML VIAL IV PRN (10:18)
[2020-09-26] MEDS ORDERED: ePHEDrine sulfate 50 MG/ML AMP IV PRN (10:18)
[2020-09-26] MEDS ORDERED: NALOXONE HCL 0.4 MG/1 ML VIAL/CARP IV PRN (10:18)
[2020-09-26] MEDS ORDERED: NO NARCOTICS OR SEDATIVES SCH (10:30)
[2020-09-26] MEDS ORDERED: DC INTRASPINAL MORPHINE SCH (10:30)
[2020-09-26] MEDS ORDERED: SODIUM CHLORIDE 0.9% 1000ML 1,000 ML IV SCH (10:30)
[2020-09-26] MEDS ORDERED: METOCLOPRAMIDE HCL INJ 5 MG/ML 2 ML VIAL ONE (10:36)
[2020-09-26] MEDS ORDERED: CARBOPROST TROMETHAMINE 250 MCG/ML AMPUL ONE (10:36)
[2020-09-26] MEDS ORDERED: ONDANSETRON INJ 2 MG/ML 2 ML VIAL ONE (10:36)
[2020-09-26] MEDS ORDERED: OXYTOCIN 10 UNITS/ML VIAL ONE (10:36)
[2020-09-26] MEDS ORDERED: PHENYLEPHRINE 100MCG/ML 5ML SYR ONE (10:37)
[2020-09-26] MEDS ORDERED: CARBOPROST TROMETHAMINE 250 MCG/ML AMPUL IM ONE (10:45)
--- NOTE | 2020-09-26 11:14 | Operative Report ---
PG Post Operative Report Pre & Post Diagnosis Operation Date: 09/26/20 09:35 Pre-Op Diagnosis: 1. IUP at 40 4/7 weeks 2. Failure to dilate Post-Op Diagnosis: Same I identified the patient and participated in the time-out.: Yes Procedure Operation Date: 09/26/20 09:35 Actual Procedures p Primary low transverse with vertical T extension Section in LD with the of a live male child at 1014. - Lata Hannah DO Surgeon Lata Hannah DO Wire Loop Machine Operator Marc Darby MD Estimated Blood Loss 600 Findings Consistent with Post-Op Diagnosis Viable male Apgars 3/9. Weight 8#15.5 Specimens cord blood, cord gas, placenta Drains martinez clear yellow Anesthesia Type L&D Only Epidural Exists Complications none Disposition Accompanied Patient To Recovery: Yes Disposition: L&D Indications 20yo @ 40 5/7, presented in labor. Progressed to 7cm dilation, 0 station. Unable to dilate beyond this, and unable to attain adequate contractions with pitocin. Description of Procedure The patient was seen in her labor and delivery room, risks benefits and alternatives to surgery were reviewed. Informed consent obtained. Questions were answered. She was taken to the operating room, spinal anesthesia was administered. She was then prepared and draped in the usual sterile fashion in the supine position with a leftward tilt. Timeout was confirmed. A Pfannenstiel skin incision was made with a scalpel, and carried through to the underlying layer of fascia. Fascia was nicked at midline, and this incision was extended bilaterally. The superior aspect of the fascial incision was grasped with Rianna clamps x2, elevated off the underlying rectus abdominis muscles, and dissected sharply and bluntly. In similar fashion, the inferior aspect of the fascial incision was dissected. The rectus abdominis muscles were , and the peritoneum was entered bluntly digitally. This was extended bilaterally. The bladder flap was taken down carefully using Metzenbaum scissors. Using a new scalpel, a low transverse uterine incision was created. Clear amniotic fluid noted. The infant was wedged in the pelvis, assistant construction superintendent broke suction from below with a sterile gloved hand. T-incision made with bandage scissors. The was delivered from a cephalic presentation. The head delivered, followed by shoulders and body. The cord was doubly clamped and cut, and the infant was handed off to the waiting transit operator. A segment was retained for cord gases. Cord blood was obtained. The placenta was delivered spontaneously intact. The uterus was exteriorized, and cleared of all clots and debris. The hysterotomy incision was reapproximated. The T incision was reapproximated in 3 layers - the first with 0-vicryl incorporating the first half of the myometrium, and the second layer incorporating the outer half of the myometrium. A third layer of 0-vicryl was used to reapproximate the uterine serosa in a baseball stitch. The hysterotomy was then reapproximated using 0 Vicryl in a running locked stitch. A second layer of the same suture was used to imbricate the incision. Posterior uterus was evaluated and normal. The uterus was returned to the abdomen, and gutters were cleared of clots and debris. Excellent hemostasis was observed. The fascial incision was reapproximated using 0 Vicryl in a running stitch. The subcutaneous tissue was irrigated, and reapproximated using 2-0 plain gut in a running stitch. The skin was reapproximated using 4-0 Vicryl in a running subcuticular stitch. Steri-Strips and a bandage were applied. The patient tolerated the procedure well, and will be taken to the recovery area in stable and good condition. I attest to the content of the Intraoperative Record and any orders documented therein. Any exceptions are noted below.
[2020-09-26 11:20] LABS: Base Excess Cord Arterial Bld -7.6 mEq/L (-9-1.8); CO2 Cord Arterial Blood 64 mmHg (39.1-73.5); HCO3 Cord Arterial Blood 22 mmol/L (19.7-28.5); pH Cord Arterial Blood 7.16 (7.1-7.38)
[2020-09-26 11:24] LABS: Oxygen Sat Cord Arterial Blood < 60.0 % (<60); PO2 Cord Arterial Blood < 10 mmHg (4.1-31.7)
--- NOTE | 2020-09-26 12:05 | Communication Note ---
Date of Service: September 26, 2020 RN notifies me that patient is c/o worsening cough (this began acutely while she was on the OR table having her ), shortness of breath, and chest pressure only when lying back / better when upright. Patient has non-productive cough and lungs sound clear per RN. O2 Sat was briefly 70s per the pulse ox, but that was suspected to be faulty; pulse ox sensor replaced and sats have been 100% since. Patient had covid test about a week prior to admission and will now be stat re-tested. acute dialysis nurse aware, does not want to move patient to neg pre ssure room until labs resulted / if positive. Chest CT also being obtained; pulse mildly elevated, temp 99.9, , lengthy immobilization during labor, needs r/o PE. RN notifying anesthesiologist as well. I am heading to LD6 to evaluate patient.
[2020-09-26] MEDS ORDERED: LACTATED RINGER'S 1,000 ML IV SCH (12:13)
[2020-09-26] MEDS ORDERED: HYDROCORTISONE ACETATE 25 MG SUPP PR PRN (12:13)
[2020-09-26] MEDS ORDERED: DIPHTHERIA/TETANUS/PERTUSSIS 0.5 ML SYR/VIAL IM ONE (12:13)
[2020-09-26] MEDS ORDERED: SUPERCREAM 0.870% 15 GM JAR EXT PRN (12:13)
[2020-09-26] MEDS ORDERED: MAGNESIUM HYDROXIDE SUSP 30 ML UDC PO PRN (12:13)
[2020-09-26] MEDS ORDERED: BENZOCAINE 20% AER SPR 82.5 GM CAN EXT PRN (12:13)
[2020-09-26] MEDS ORDERED: OPTIRAY 320 125ml IV ONE (12:48)
--- NOTE | 2020-09-26 13:17 | CT Scan Report ---
CT ANGIOGRAPHY OF THE CHEST, PULMONARY EMBOLUS PROTOCOL CLINICAL HISTORY: PE? Post-, cough, SOB COMPARISON STUDY: No previous studies for comparison. TECHNIQUE: Following IV administration of 120 mL of Optiray-320, helical axial images of the chest we re obtained utilizing the pulmonary embolus protocol. Maximal intensity projections and sagittal and coronal reformats were viewed on an independent 3D workstation. IV contrast was administered withou t complication. Automated exposure control was utilized for the study. A dose lowering technique wa s utilized adhering to the principles of ALARA. CT DOSE: 317.58 mGy.cm FINDINGS: No central or lobar pulmonary emboli are identified. The segmental and subsegmental pulmon malachi arteries are suboptimally assessed due to suboptimal opacification and respiratory motion. There is no thoracic aortic dissection. Size of the heart is normal. There is no pericardial effusion. Smal l left and trace right pleural effusions are noted. Associated subpleural opacities reflect atelectas is. There is no pneumothorax. There is no consolidation to suggest pneumonia. A small amount of epidu ral gas is noted this is not unexpected given recent epidural catheter placement. A small amount of p neumoperitoneum within the upper abdomen is noted. This is also expected given recent sectio n. IMPRESSION: 1. No pulmonary emboli identified. Segmental and subsegmental pulmonary arteries suboptimally assesse d, as described above. 2. Small left and trace right pleural effusions with associated atelectasis. 3. Minimal pneumoperitoneum and epidural gas which represent expected findings given recent section and epidural. ACT 112: Negative or not required by law. Electronically signed by: Jurgen Xiong M.D. 09/26/2020 1:16 PM
[2020-09-26] MEDS: OXYTOCIN 30 UNITS in LACTATED RINGER'S 1,000 ML IV SCH ×2 (13:53→21:04)
[2020-09-26] MEDS: SIMETHICONE 80 MG CHEW PO SCH ×3 (14:44→20:36)
[2020-09-26] MEDS: MEPERIDINE HCL 25 MG/ML CARP/VIAL IV PRN ×2 (14:44→20:36)
--- NOTE | 2020-09-26 17:16 | Anesthesia Procedure Note ---
Date of Service September 26, 2020 Anesthesia Post Epidural Note Vital Signs Vital Signs: Temp Pulse Resp BP Pulse Ox 36.7 C 100 H 18 111/73 98 09/26/20 14:00 09/26/20 14:00 09/26/20 15:11 09/26/20 14:00 09/26/20 15:11 Pain Intensity Lower Medial Abdomen: Pain Intensity: 7 Notes Mental Status: alert / awake / arousable and participated in evaluation Nausea / Vomiting: adequately controlled Pain: adequately controlled Airway Patency, RR, SpO2: stable & adequate BP & HR: stable & adequate Hydration State: stable & adequate Neuraxial Anesthesia: was administered and sensory block is resolving Anesthetic Complications: no major complications apparent Epidural: Removed without complications and With tip intact
--- NOTE | 2020-09-26 17:16 | Anesthesiology Progress Note ---
Date of Service September 26, 2020 Anesthesia Post Procedure Vital Signs Vital Signs: Temp Pulse Pulse Resp BP BP Pulse Ox 09/26/20 15:11 18 98 09/26/20 14:00 36.7 C 100 H 20 111/73 100 09/26/20 13:54 101 H 100 09/26/20 13:49 96 H 100 09/26/20 13:44 100 H 100 09/26/20 13:39 100 H 100 09/26/20 13:34 98 H 100 09/26/20 13:29 99 H 100 09/26/20 13:24 101 H 100 09/26/20 13:19 101 H 99 09/26/20 13:14 97 H 99 09/26/20 13:09 102 H 99 09/26/20 13:06 103 H 119/77 09/26/20 13:05 102 H 20 119/77 99 09/26/20 13:04 99 H 99 09/26/20 12:35 37.1 C 100 H 20 116/74 98 09/26/20 12:30 95 H 98 09/26/20 12:25 100 H 112/73 99 09/26/20 12:20 92 H 99 09/26/20 12:15 101 H 108/78 100 09/26/20 12:10 96 H 99 09/26/20 12:05 102 H 20 133/80 99 09/26/20 12:00 98 H 100 09/26/20 11:55 100 H 20 124/74 100 09/26/20 11:50 101 H 99 09/26/20 11:45 100 H 20 122/63 99 09/26/20 11:40 107 H 99 09/26/20 11:35 106 H 20 129/71 97 09/26/20 11:30 105 H 99 09/26/20 11:26 111 H 123/71 09/26/20 11:25 111 H 20 123/71 98 09/26/20 11:20 112 H 98 09/26/20 11:16 111 H 122/88 09/26/20 11:15 110 H 20 122/88 99 09/26/20 11:10 115 H 94 09/26/20 11:06 112 H 90 09/26/20 11:05 36.9 C 116 H 20 107/55 L 100 09/26/20 09:45 128 H 98 09/26/20 09:41 127 H 108/54 L 09/26/20 09:40 109 H 95 09/26/20 09:35 116 H 97 09/26/20 09:30 117 H 97 09/26/20 09:25 118 H 120/68 97 09/26/20 09:20 114 H 97 09/26/20 09:15 110 H 94 09/26/20 09:11 106 H 117/66 09/26/20 09:10 106 H 93 09/26/20 09:08 99 H 91 09/26/20 09:05 102 H 94 09/26/20 09:00 96 H 94 09/26/20 08:56 97 H 102/59 L 09/26/20 08:55 100 H 95 09/26/20 08:50 96 H 93 09/26/20 08:45 95 H 93 09/26/20 08:41 94 H 101/55 L 09/26/20 08:40 99 H 94 09/26/20 08:35 96 H 94 09/26/20 08:32 100 H 91 09/26/20 08:30 101 H 92 09/26/20 08:25 101 H 116/67 93 09/26/20 08:20 108 H 96 09/26/20 08:18 100 H 91 09/26/20 08:15 100 H 93 09/26/20 08:10 102 H 117/67 97 09/26/20 08:05 105 H 97 09/26/20 08:00 102 H 96 09/26/20 07:55 101 H 113/68 97 09/26/20 07:50 99 H 97 09/26/20 07:45 102 H 97 09/26/20 07:40 100 H 114/73 97 09/26/20 07:35 96 H 98 09/26/20 07:30 103 H 97 09/26/20 07:29 125 H 88 L 09/26/20 07:26 110 H 104/66 09/26/20 07:25 108 H 98 09/26/20 07:20 109 H 97 09/26/20 07:15 104 H 96 09/26/20 07:10 107 H 100/55 L 96 09/26/20 07:05 37.7 C H 104 H 20 107/51 L 96 09/26/20 07:00 102 H 16 96 09/26/20 06:56 102 H 104/57 L 09/26/20 06:55 108 H 97 09/26/20 06:50 105 H 94 09/26/20 06:45 107 H 96 09/26/20 06:40 102 H 103/57 L 96 09/26/20 06:35 106 H 96 09/26/20 06:30 101 H 16 96 09/26/20 06:27 103 H 103/52 L 09/26/20 06:25 102 H 96 09/26/20 06:21 114 H 87 L 09/26/20 06:20 37.5 C 111 H 96 09/26/20 06:15 100 H 95 09/26/20 06:13 105 H 116/65 09/26/20 06:10 104 H 97 09/26/20 06:05 101 H 96 09/26/20 06:00 104 H 16 97 09/26/20 05:57 103 H 114/65 09/26/20 05:55 103 H 96 09/26/20 05:50 101 H 96 09/26/20 05:45 98 H 97 09/26/20 05:40 99 H 115/69 98 09/26/20 05:38 107 H 90 09/26/20 05:35 101 H 99 09/26/20 05:30 97 H 16 97 09/26/20 05:29 105 H 86 L 09/26/20 05:26 99 H 111/73 09/26/20 05:25 103 H 95 09/26/20 05:20 97 H 98 09/26/20 05:15 97 H 99 09/26/20 05:11 98 H 109/59 L 09/26/20 05:10 103 H 98 09/26/20 05:05 96 H 98 09/26/20 05:00 98 H 16 98 09/26/20 04:55 98 H 112/65 99 09/26/20 04:50 107 H 99 09/26/20 04:45 97 H 99 09/26/20 04:41 96 H 109/65 09/26/20 04:40 98 H 98 09/26/20 04:35 101 H 98 09/26/20 04:30 100 H 16 98 09/26/20 04:26 111 H 128/75 09/26/20 04:25 112 H 96 09/26/20 04:20 99 H 98 09/26/20 04:16 36.7 C 107 H 127/73 09/26/20 04:15 105 H 98 09/26/20 04:10 125 H 99 09/26/20 04:06 118 H 89 L 09/26/20 04:05 106 H 99 09/26/20 04:00 111 H 16 98 09/26/20 03:55 102 H 113/58 L 98 09/26/20 03:50 105 H 98 09/26/20 03:45 102 H 98 09/26/20 03:42 101 H 106/56 L 09/26/20 03:40 109 H 97 09/26/20 03:35 101 H 98 09/26/20 03:30 113 H 98 09/26/20 03:26 103 H 115/56 L 09/26/20 03:25 104 H 98 09/26/20 03:20 110 H 99 09/26/20 03:15 111 H 97 09/26/20 03:10 102 H 115/58 L 97 09/26/20 03:06 37.0 C 20 09/26/20 03:05 105 H 99 09/26/20 03:00 103 H 97 09/26/20 02:55 105 H 113/56 L 98 09/26/20 02:50 119 H 97 09/26/20 02:45 106 H 97 09/26/20 02:41 105 H 113/54 L 09/26/20 02:40 105 H 98 09/26/20 02:39 112 H 89 L 09/26/20 02:35 105 H 97 09/26/20 02:30 104 H 16 97 09/26/20 02:25 104 H 97/56 L 97 09/26/20 02:20 95 H 98 09/26/20 02:18 37.3 C 09/26/20 02:17 114 H 89 L 09/26/20 02:15 103 H 98 09/26/20 02:11 103 H 96/54 L 09/26/20 02:10 102 H 98 09/26/20 02:05 110 H 97 09/26/20 02:00 99 H 18 97 09/26/20 01:56 96 H 117/70 09/26/20 01:55 105 H 97 09/26/20 01:50 114 H 97 09/26/20 01:45 101 H 97 09/26/20 01:41 100 H 113/58 L 09/26/20 01:40 98 H 96 09/26/20 01:35 102 H 97 09/26/20 01:30 103 H 18 98 09/26/20 01:27 104 H 112/64 09/26/20 01:25 105 H 97 09/26/20 01:20 105 H 97 09/26/20 01:15 111 H 97 09/26/20 01:12 102 H 108/59 L 09/26/20 01:10 111 H 98 09/26/20 01:05 97 H 98 09/26/20 01:00 98 H 16 98 09/26/20 00:56 103 H 115/62 09/26/20 00:55 104 H 97 09/26/20 00:53 103 H 87 L 09/26/20 00:50 103 H 97 09/26/20 00:45 104 H 97 09/26/20 00:40 105 H 103/58 L 98 09/26/20 00:35 106 H 97 09/26/20 00:30 37.5 C 102 H 18 97 09/26/20 00:26 103 H 108/59 L 09/26/20 00:25 104 H 98 09/26/20 00:20 104 H 98 09/26/20 00:15 117 H 98 09/26/20 00:10 105 H 117/69 97 09/26/20 00:05 115 H 98 09/26/20 00:00 108 H 98 09/25/20 23:55 108 H 109/57 L 97 09/25/20 23:50 106 H 96 09/25/20 23:45 106 H 97 09/25/20 23:40 106 H 108/59 L 97 09/25/20 23:35 103 H 97 09/25/20 23:30 105 H 16 97 09/25/20 23:26 104 H 103/58 L 09/25/20 23:25 104 H 98 09/25/20 23:20 100 H 97 09/25/20 23:15 103 H 98 09/25/20 23:10 108 H 106/60 98 09/25/20 23:05 120 H 100 09/25/20 23:00 107 H 16 98 09/25/20 22:55 111 H 110/60 99 09/25/20 22:50 37.4 C 105 H 99 09/25/20 22:46 112 H 81 L 09/25/20 22:45 108 H 18 100 09/25/20 22:41 111 H 117/66 09/25/20 22:40 106 H 100 09/25/20 22:35 105 H 100 09/25/20 22:30 105 H 100 09/25/20 22:26 105 H 117/63 09/25/20 22:25 101 H 100 09/25/20 22:20 107 H 18 97 09/25/20 22:19 117 H 85 L 09/25/20 22:15 105 H 98 09/25/20 22:11 100 H 122/75 09/25/20 22:10 100 H 100 09/25/20 22:05 104 H 100 09/25/20 22:00 102 H 18 100 09/25/20 21:55 100 H 125/67 100 09/25/20 21:54 103 H 85 L 09/25/20 21:50 100 H 100 09/25/20 21:45 103 H 99 09/25/20 21:42 102 H 121/63 88 L 09/25/20 21:40 97 H 100 09/25/20 21:35 104 H 100 09/25/20 21:30 102 H 16 100 09/25/20 21:26 99 H 121/65 09/25/20 21:25 100 H 100 09/25/20 21:20 101 H 100 09/25/20 21:15 99 H 100 09/25/20 21:11 96 H 117/61 09/25/20 21:10 93 H 100 09/25/20 21:07 98 H 90 09/25/20 21:05 100 H 100 09/25/20 21:01 96 H 89 L 09/25/20 21:00 95 H 18 99 09/25/20 20:56 98 H 116/64 09/25/20 20:55 102 H 98 09/25/20 20:50 37.1 C 99 H 100 09/25/20 20:45 100 H 100 09/25/20 20:40 101 H 116/69 98 11/15/20 20:35 101 H 95 11/15/20 20:30 97 H 18 100 11/15/20 20:25 99 H 119/70 98 11/15/20 20:20 98 H 100 11/15/20 20:15 93 H 100 11/15/20 20:13 104 H 88 L 15/20 20:11 90 118/67 1115/20 20:10 93 H 100 15/20 20:05 94 H 100 15/20 20:04 101 H 87 L 15/20 20:00 92 H 18 96 15/20 19:55 95 H 107/61 100 15/20 19:50 92 H 100 15/20 19:46 97 H 90 15/20 19:45 98 H 99 15/20 19:40 96 H 109/63 94 15/20 19:39 108 H 90 15/20 19:35 98 H 98 15/20 19:32 97 H 91 15/20 19:30 91 H 16 99 15/20 19:25 91 H 107/61 99 15/20 19:20 93 H 99 15/20 19:15 37.1 C 91 H 18 99 15/20 19:11 92 H 110/63 15/20 19:10 91 H 100 15/20 19:09 99 H 118/72 89 L 15/20 19:05 108 H 100 15/20 19:04 107 H 85 L 15/20 19:00 100 H 97 15/20 18:56 96 H 104/59 L 15/20 18:55 96 H 97 15/20 18:50 96 H 98 15/20 18:45 100 H 99 /15/20 18:41 101 H 108/55 L 15/20 18:40 99 H 98 15/20 18:35 100 H 98 15/20 18:30 98 H 97 15/20 18:26 108 H 112/67 15/20 18:25 104 H 97 /15/20 18:20 100 H 97 15/20 18:15 100 H 96 15/20 18:10 102 H 107/59 L 97 11/15/20 18:05 98 H 96 09/25/20 18:00 96 H 96 09/25/20 17:55 96 H 109/64 96 09/25/20 17:50 97 H 96 09/25/20 17:45 95 H 97 09/25/20 17:40 103 H 111/57 L 97 09/25/20 17:35 98 H 99 09/25/20 17:30 96 H 116/62 97 09/25/20 17:25 97 H 98 09/25/20 17:21 96 H 119/68 09/25/20 17:20 96 H 97 Pain Intensity Lower Medial Abdomen: Pain Intensity: 7 Transfer of Care Handoff Completed per policy Notes Mental Status: alert / awake / arousable Patient Amnestic to Procedure: Yes Nausea / Vomiting: adequately controlled Pain: adequately controlled Airway Patency, RR, SpO2: stable & adequate BP & HR: stable & adequate Hydration State: stable & adequate Anesthetic Complications: no major complications apparent
[2020-09-26] MEDS: DOCUSATE SODIUM 100 MG CAP PO SCH (20:50)
[2020-09-27] MEDS ORDERED: MEPERIDINE HCL 50 MG/ML CARP IV PRN (04:19)
[2020-09-27] MEDS ORDERED: KETOROLAC 30 MG/ML VIAL IV PRN (04:19)
[2020-09-27] MEDS ORDERED: PROMETHAZINE HCL 25 MG in SODIUM CHLORIDE 0.9% 50 ML IV PRN (04:19)
[2020-09-27] MEDS ORDERED: diphenhydrAMINE 50 MG/ML VIAL IV PRN (04:19)
[2020-09-27] MEDS ORDERED: diphenhydrAMINE Capsule 25 MG CAP PO PRN (04:19)
[2020-09-27] MEDS ORDERED: ONDANSETRON INJ 2 MG/ML 2 ML VIAL IV PRN (04:19)
[2020-09-27] MEDS: oxyCODONE/ACETAMINOPHEN 5mg/325mg TAB PO PRN ×5 (04:38→19:34)
--- NOTE | 2020-09-27 04:56 | Obstetrical Progress Note ---
Date of Service <Rajesh Gan MD - Last Filed: 09/27/20 06:19> September 27, 2020 Assessment & Plan <Rajesh Gan MD - Last Filed: 09/27/20 06:19> (1) S/P : Jeanne is a 20 y/o female who is POD #1 following PLTCS due to non-progressing labor at 40-5/7 WGA. S/P - Feels well today. Eating well, voiding well, ambulating well. - Pain moderately controlled on Percocet, ibuprofen PRN - Routine postoperative care today -- OOB, ambulation, diet as tolerated - After discharge will have [address] Hannah Tachycardia to HR 130s - Persistent, regular tachycardia into the 130s persisting through this AM - Patient denies CP, SOB, leg pain; BPs, RR, SpO2s have been WNL. Afebrile. - CTA of Chest obtained yesterday d/t patient reporting difficulty breathing / tachycardia. No PEs identified, although segmental and subsegmental pulmonary aa had limited visibility. If there are further signs/symptoms suggestive of PE, can consider V/Q scan, although this seems unlikely at this time - Continue to promote PO intake and monitor throughout today. Can consider fluid bolus PRN. Subjective <Rajesh Gan MD - Last Filed: 09/27/20 06:19> Jeanne is a 20 y/o female who is POD #1 following PLTCS due to non- progressing labor at 40-5/7 WGA. She reports feeling well overall this morning. Endorses some abdominal cramping & 4/10 pain somewhat managed on analgesics. Voiding without difficulty. Tolerating meals overnight. Minimal ambulation since operation. Not yet passing gas or bowel movements. Bottle feeding without difficulty. She has continued to remain tachycardic in the 130s overnight and into this AM. Endorsed shortness of breath yesterday, but not on interview this morning. RR and SpO2 appropriate. No chest pain. Afebrile. Pain moderate, as above. Review of Systems Denies fever, chills, sweats Denies shortness of breath, difficulty breathing, chest pain, palpitations, chest pressure. Denies breast pain. Denies dysuria. Denies headache or changes in vision. Physical Exam <Rajesh Gan MD - Last Filed: 09/27/20 06:19> General: Alert, oriented. No acute distress. Cardiac: Tachycardic with regular rhythm, no murmurs/rubs/gallops. Respiratory: Clear to auscultation bilaterally a/p, no wheezes/rales/rhonchi. No increased work of breathing. Symmetrical chest rise. No respiratory distress. Abdomen: Soft, nontender, nondistended. Bowel sounds present. Uterus: Uterine fundus firm, palpable 2 cm below umbilicus. Surgical bandage still in place, but appears dry and intact. No surrounding erythema. Lower Extremities: No lower extremity edema or swelling. No deep calf pain. Ayaz's negative bilaterally. Results & Data ([facility]) <Rajehs Gan MD - Last Filed: 09/27/20 06:19> Vital Signs (Past 12 Hours) Vital Signs Temp Pulse Resp BP Pulse Ox 09/27/20 04:30 37.0 C 132 H 22 117/80 94 09/27/20 04:00 18 94 09/27/20 03:00 18 94 09/27/20 02:00 18 94 09/27/20 01:00 18 94 09/27/20 00:00 37.4 C 130 H 18 102/62 94 09/26/20 23:00 18 94 09/26/20 22:00 18 96 09/26/20 21:03 18 96 09/26/20 20:36 20 98 09/26/20 19:10 18 99 09/26/20 18:17 37.4 C 123 H 18 112/71 99 09/26/20 17:07 18 99 <Ciara Darby MD - Last Filed: 09/27/20 06:43> Co-Signing Physician Notes I have reviewed the resident's note and examined the patient myself, and agree with the note above. Patient seen and examined yesterday at time of her c/o cough and SOB, immediately after (and beginning during) her . There was slight L>R pedal edema, lung exam was without wheezes and without abnormal findings at the bases bilaterally, good air movement; O2 sat was normal. Testing revealed COVID still negative and CT, though did not opacify all the subsegmental vessels completely, was without evidence for PE. By 1-2 hours postop, the patient's cough had improved drastically and she no longer felt SOB. Remaining items on the differential were asthma attack triggered by hemabate (though she gives no h/o this), smoker's cough exacerbated by supine positioning during , vs cough due to high spinal level resulting in difficulty deeply inspiring. Given her improvement, and the risks of nebulizer treatment as an aerosolizing procedure that now requires RT to be at bedside per hospital policy, no albuterol was given and she continued to improve through the day. Patient does remain mildly tachy, which is the only remaining issue. We will look to Hgb this morning (pending), continue to strive for pain management, and could consider repeat imaging if PE is strongly suspected. Resident Activity Tracking <Rajesh Gan MD - Last Filed: 09/27/20 06:19> Resident Involvement: Resident Care Provided Care Provided: Adult [facility] Medicine and OB Delivery
[2020-09-27] MEDS: SIMETHICONE 80 MG CHEW PO SCH ×4 (07:58→21:42)
[2020-09-27] MEDS: DOCUSATE SODIUM 100 MG CAP PO SCH ×2 (07:58→21:44)
[2020-09-27] MEDS: FERROUS SULFATE 325 MG TAB PO SCH (07:58)
[2020-09-27] MEDS: IBUPROFEN 600 MG TAB PO PRN ×4 (07:59→19:34)
[2020-09-27] MEDS: PRENATAL VITAMIN 1 TAB PO SCH (07:59)
[2020-09-27 08:35] LABS: Hemoglobin 9.3 g/dL (12.0-16.0); Mean Corpuscular Hemoglobin 31.2 pg (25-34); Mean Corpuscular Hgb Conc 33.2 g/dL (32-36); Mean Platelet Volume 11.7 fL (7.4-10.4); Platelet Count 171 K/uL (130-400); RDW Coefficient of Variation 13.5 % (11.5-14.5); RDW Standard Deviation 46.7 fL (36.4-46.3); Red Blood Count 2.98 M/uL (4.2-5.4); White Blood Count 17.66 K/uL (4.8-10.8)
[2020-09-27 09:01] LABS: Eosinophils # (auto) 0.02 K/uL (0-0.5); Eosinophils % (auto) 0.1 %; Immature Granulocytes # (auto) 0.06 K/uL (0.00-0.02); Immature Granulocytes % (auto) 0.3 %; Lymphocytes # (auto) 1.15 K/uL (1.2-3.4); Lymphocytes % (auto) 6.5 %; Monocytes # (auto) 1.11 K/uL (0.11-0.59); Monocytes % (auto) 6.3 %; Neutrophils # (auto) 15.32 K/uL (1.4-6.5); Neutrophils % (auto) 86.8 %
[2020-09-28] MEDS: oxyCODONE/ACETAMINOPHEN 5mg/325mg TAB PO PRN ×4 (00:11→15:59)
[2020-09-28] MEDS: IBUPROFEN 600 MG TAB PO PRN ×4 (00:12→15:58)
--- NOTE | 2020-09-28 06:49 | Obstetrical Progress Note ---
Date of Service <Rajesh Gan MD - Last Filed: 09/28/20 06:49> September 28, 2020 Assessment & Plan <Rajesh Gan MD - Last Filed: 09/28/20 06:49> (1) S/P : Jeanne is a 20 y/o female who is POD #2 following PLTCS due to non-progressing labor at 40-5/7 WGA. S/P - Feels well today. Eating well, voiding well, ambulating well. - Pain moderately controlled on Percocet, ibuprofen PRN - Routine postoperative care today -- continue OOB and ambulation as tolerated - Tachycardia stable in the low 100s overnight -- Hgb returned at 9.3 yesterday AM (from 13.4 day prior). No shortness of breath and cough has resolved. Afebrile throughout yesterday and overnight. Feels well this AM. - Anticipate d/c today or tomorrow pending peds - After discharge will have [address] Hannah Subjective <Rajesh Gan MD - Last Filed: 09/28/20 06:49> Jeanne is a 20 y/o female who is POD #2 following PLCTS for non-progressing labor at 40 WGA. She reports feeling well overall this morning. Endorses minimal abdominal cramping pain well managed on analgesics. Voiding without difficulty. Tolerating meals overnight and able to ambulate some. Endorses passing gas but not yet bowel movement. Has some persistent lochia with some improvement this morning. Currently bottle feeding. Review of Systems Denies fever, chills, sweats Denies shortness of breath, difficulty breathing, chest pain, palpitations, chest pressure. Denies breast pain. Denies dysuria. Denies headache or changes in vision. Physical Exam <Rajesh Gan MD - Last Filed: 09/28/20 06:49> General: Alert, oriented. No acute distress. Cardiac: Tachycardic with regular rhythm, no murmurs/rubs/gallops. Respiratory: Clear to auscultation bilaterally a/p, no wheezes/rales/rhonchi. No increased work of breathing. Symmetrical chest rise. No respiratory distress. Abdomen: Soft, nontender, nondistended. Bowel sounds present. Uterus: Uterine fundus firm, palpable 2 cm below umbilicus. Surgical scar c/d/i Lower Extremities: No lower extremity edema or swelling. No deep calf pain. Ayaz's negative bilaterally. Results & Data ([place]) <Rajesh Gan MD - Last Filed: 09/28/20 06:49> Vital Signs (Past 12 Hours) Vital Signs Temp Pulse Resp BP 09/28/20 00:15 36.5 C 109 H 18 102/67 09/27/20 21:50 36.5 C 109 H 18 104/69 <Trinidad Quintana MD, FACOG - Last Filed: 09/28/20 09:28> Co-Signing Physician Notes Resident Physician Supervision Note: I was present with Dr. Gan during the history and exam. I discussed the case with the resident and agree with the findings and plan as documented in the note. Any exceptions or clarifications are listed here: pt states she is doing well, voiding, ambulating in room, bottle feeding, +flatus. no further cp or sob, pulse decreased. she wants to go home but with discussion with nursing concern raised that pt needs to use triflow better, walk halls and take care of baby. need to achieve certain goals specifically reviewed with pt, if can accomplish and stable can go this pm but i told her i think she would benefit from staying another night. She was appro tend to palp of abdomen, incision c/d/i with steris. cor rrr, lungs ctab, nt calves. watched her do triflow and she did well and enc her to cont. we did review her possible d/c later. sent percocet, checked on papdmp, aware of history of meth use. she is aware of how to use and then taper off percocet. Documented By: Trinidad Quintana MD, FACOG Resident Activity Tracking <Rajesh Gan MD - Last Filed: 09/28/20 06:49> Resident Involvement: Resident Care Provided Care Provided: Adult Hospital Medicine and OB Delivery
[2020-09-28] MEDS: PRENATAL VITAMIN 1 TAB PO SCH (07:55)
[2020-09-28] MEDS: FERROUS SULFATE 325 MG TAB PO SCH (07:55)
[2020-09-28] MEDS: DOCUSATE SODIUM 100 MG CAP PO SCH (07:55)
[2020-09-28] MEDS: SIMETHICONE 80 MG CHEW PO SCH ×2 (07:55→12:52)
[2020-09-28 09:57] LABS: Hematocrit (blood only) 28.2 % (37-47); Hemoglobin 9.2 g/dL (12.0-16.0)
--- NOTE | 2020-10-08 09:41 | Discharge Summary ---
Date of Service October 08, 2020 Admission HPI Per Admitting Provider Ptient is a 20yowf with iup at 40 4/7 weeks who presents to labor and delivery with complaints of contractions and a large gush of fluid at 1pm. clear. Notes contractions much more uncomfortable than previous contractions. complicated by the following 1. late presentation to care--presented at 20 weeks, was incarcerated at the time. 2. 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 Is currently on probation , and getting drug tested regularly and has been negative. 3. Hep C prelim positive and RNA is negative. 4. bilateral pyelectasis on US--stable, to be followed after delivery labs--A-/ab-/ri/rprnr/hepb-/hiv-/Hep C prlim positive/ Hep C RNA neg/AFP-/cf/sma-/panorama low risk/failed 1 hr gtt/ passed 2 hr gtt/ gbs neg/ covid neg x 2. Discharge Data Consultations 09/25/20 15:04 Consult Anesthesiology Stat Procedures Performed Operation Date: 09/26/20 09:35 Actual Procedures p Section in LD with the of a live male child at 1014. - Lata Hannah, Hospital Course (1) : Failure of labor progression, primary low transverse section with T-incision, routine recovery, [place] home 09/28 on POD 3. Followup in office in 6w. Coding Level of Care Code None Diagnoses Z34.90
--- NOTE | 2020-10-10 12:54 | Coding Query ---
CODING QUERY To promote full compliance with coding requirements relating to patient care, provider participation is requested in all cases of lab support tech uncertainty. Please assist us with the question(s) below: Coding Question(s): There is documentation on Progress Note 09/26/20 of, "Temp 37.7 and will need to watch closely. Patient signed out to Dr. Darby and Brielle today. Discussed my concerns with them about this patient and her dysfunctional labor. If temp persists, may need antibiotics.". Please specify below, in your clinical opinion, regarding Temp 37.7. ( ) Temp 37.7 means elevated temperature or fever/pyrexia ( x ) Temp 37.7 is not abnormal temperature ( ) Temp 37.7 is Other: Please Specify Physician's Response(s): Thank you Phyllis Brown Principal Diagnosis: "that condition established after study, to be chiefly responsible for occasioning the admission of the patient to the hospital for care." Co-Existing Principal Diagnosis: "when two or more diagnoses equally meet the criteria for principal diagnosis as determined by the circumstances of admission, diagnostic work up, and/or therapy provided, and the Alphabetic Index, Tabular List, or another coding guideline does not provide sequencing direction, any one of the diagnoses may be sequenced first." "When the physician has documented what appears to be a current diagnosis in the body of the record, but has not included the diagnosis in the final diagnostic statement, the physician should be asked whether the diagnosis should be added." (Source Coding [facility] 2 QTR90. p3-4) [facility]
== END 2020-09-28 16:40 | disposition home or self-care (01) | DRG 787 ==
LOC: OPB 14:29 → 4S1 14:30 → 4S2 09-26 14:00